=== PATIENT | male | born 1980 | race American Indian/Alaskan Native ===

== ENCOUNTER 2019-01-01 14:29 | Emergency (ER) | payer MEDICARE ==
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
[2019-01-01 15:11] LABS: Basophils % (Auto) 0.6 % (0.0-1.8); Eosinophils # (Auto) 0.3 K/mm3 (0.0-0.4); Eosinophils % (Auto) 4.1 % (0.0-4.3); Hematocrit 41.6 % (35.5-45.6); Hemoglobin 13.9 gm/dl (11.8-15.2); Lymphocytes # (Auto) 1.9 K/mm3 (1.2-5.4); Lymphocytes % (Auto) 29.5 % (13.4-35.0); Mean Corpuscular HGB Conc 33 % (32-34); Mean Corpuscular Volume 81 fl (84-94); Monocytes # (Auto) 0.7 K/mm3 (0.0-0.8); Monocytes % (Auto) 10.5 % (0.0-7.3); Platelet Count 292 K/mm3 (140-440); Red Blood Count 5.13 M/mm3 (3.65-5.03); Red Cell Distribution Width 16.9 % (13.2-15.2)
[2019-01-01] MEDS ORDERED: GEODON IM ONE (15:11)
[2019-01-01 15:37] LABS: Alanine Aminotransferase 9 units/L (7-56); Albumin 4.1 g/dL (3.9-5); BUN/Creatinine Ratio 9; Blood Urea Nitrogen 6 mg/dL (9-20); Calcium 9.1 mg/dL (8.4-10.2); Hemolysis Index 7
[2019-01-01 16:44] LABS: Bacteria,Urine 1+ /HPF (Negative); Bilirubin,Urine NEG (Negative); Blood,Urine NEG (Negative); Color,Urine Yellow (Yellow); Mucus,Urine FEW /HPF; Protein,Urine <15 mg/dL mg/dL (Negative); Urobilinogen,Urine < 2.0 mg/dL (<2.0)
[2019-01-01 16:45] LABS: Amphetamine Screen,Urine PRESUMPTIVE NEGATIVE; Benzodiazepines Screen,Urine PRESUMPTIVE NEGATIVE; Cannabinoid Screen,Urine PRESUMPTIVE NEGATIVE; Cocaine Screen,Urine PRESUMPTIVE NEGATIVE; Methadone Screen,Urine PRESUMPTIVE NEGATIVE; Opiate Screen,Urine PRESUMPTIVE NEGATIVE
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
[2019-01-05 02:46] VITALS: BP 105/64
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
== END 2019-01-05 16:04 | disposition home or self-care (01) ==
LOC: ED 14:29 → EEVIPCON 14:29 → ED 01-05 16:04
DX: F23 Brief psychotic disorder (principal); F91.1 Conduct disorder, childhood-onset type
CPT/HCPCS: 36415; 80053; 80307; 81001; 85025; 99284; G0480; 80320

== ENCOUNTER 2021-02-26 00:59 | Emergency (ER) | payer MEDICARE | END 2021-02-26 01:30 | disposition left against medical advice (07) | LOC: EEVIPCON 00:59 → ED 00:59 | DX: R22.40 Localized swelling, mass and lump, unspecified lower limb (principal); Z53.21 Procedure and treatment not carried out due to patient leaving prior to being seen by health care provider ==

== ENCOUNTER 2022-06-26 11:11 | Emergency (ER) | payer MEDICARE | END 2022-06-26 16:37 | disposition left against medical advice (07) | LOC: ED 11:11 | DX: M79.606 Pain in leg, unspecified (principal); Z13.30 Encounter for screening examination for mental health and behavioral disorders, unspecified; Z53.21 Procedure and treatment not carried out due to patient leaving prior to being seen by health care provider ==

== ENCOUNTER 2022-06-28 10:31 | Emergency (ER) | payer MEDICARE ==
[2022-06-28 10:47] VITALS: BP 171/76
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
--- NOTE | 2022-06-28 11:28 | XRay Report ---
LEFT ANKLE 3 VIEWS INDICATION: ankle pain/injury. COMPARISON: None. IMPRESSION: There is severe diffuse soft tissue swelling/edema. No acute osseous abnormality or suly nt pathology is detected. Signer Name: Yovanny Nicholson Jr, MD Signed: 06/28/2022 11:24 AM Workstation Name: [id number]
[2022-06-28] MEDS ORDERED: KETOROLAC 10 MG TAB PO ONE (13:07)
[2022-06-28] MEDS ORDERED: cephALEXin 500 MG CAP PO ONE (13:07)
[2022-06-28] MEDS ORDERED: SULFAMETHOXAZOLE/TRIMETHOPRIM 800/160MG DS TAB PO ONE (13:07)
[2022-06-28] MEDS ORDERED: ACETAMINOPHEN W/CODEINE 300-30 MG TAB PO ONE (13:07)
[2022-06-28] MEDS ORDERED: predniSONE 20 MG TAB PO ONE (13:11)
--- NOTE | 2022-06-28 14:11 | Emergency Department Report ---
ED Extremity Problem HPI - General Chief complaint: Extremity Injury, Lower Stated complaint: ANKLE/ LEG SWOLLEN Time Seen by Provider: 06/28/22 11:02 Source: patient Mode of arrival: Ambulatory Limitations: Physical Limitation - History of Present Illness Initial comments: 41 yo black male with a pmh of schizophrenia presents to ed for evaluation of le ft ankle pain. Mother states that patient recently got out of [facility] and has had bilateral ankle pain for months but left ankle worse the past few days. He denies in injury or trauma. He denies fever. MD Complaint: extremity swelling -: Gradual, month(s) Location: bilateral lower extremity History of Same: Yes -: No myalgia, No arthralgia, No fever, No associated dyspnea, No associated chest pain Severity scale (0 -10): 6 Quality: aching Associated Symptoms: denies other symptoms - Related Data Previous Rx's Medication Instructions Recorded Last Taken Type Acetaminophen/Codeine [Tylenol 1 tab PO Q6H PRN #12 tab 06/28/22 Unknown Rx /Codeine # 3 tab] Ketorolac [Toradol] 10 mg PO Q6H PRN #12 tab 06/28/22 Unknown Rx Sulfamethoxazole/Trimethoprim 1 each PO BID 7 Days #14 tab 06/28/22 Unknown Rx [Bactrim DS TAB] cephALEXin [Keflex] 500 mg PO Q12HR 7 Days #14 cap 06/28/22 Unknown Rx Allergies Allergy/AdvReac Type Severity Reaction Status Date / Time No Known Allergies Allergy Verified 06/28/22 10:48 ED Review of Systems ROS: Stated complaint: ANKLE/ LEG SWOLLEN Other details as noted in HPI Comment: All other systems reviewed and negative Constitutional: denies: chills, fever Eyes: denies: eye pain, eye discharge, vision change ENT: denies: ear pain, throat pain Respiratory: denies: cough, shortness of breath, wheezing Cardiovascular: denies: chest pain, palpitations Endocrine: no symptoms reported Gastrointestinal: denies: abdominal pain, nausea, diarrhea Genitourinary: denies: urgency, dysuria Musculoskeletal: denies: back pain, joint swelling, arthralgia Skin: denies: rash, lesions Neurological: denies: headache, weakness, paresthesias Psychiatric: denies: anxiety, depression Hematological/Lymphatic: denies: easy bleeding, easy bruising ED Past Medical Hx - Past Medical History Hx Psychiatric Treatment: Yes (multiple IP, GR, [place], [facility], [place], [facility]) Additional medical history: schizophrenia - Social History Smoking Status: Current Every Day Smoker - Medications Home Medications: Home Medications Medication Instructions Recorded Confirmed Last Taken Type Acetaminophen/Codeine [Tylenol 1 tab PO Q6H PRN #12 tab 06/28/22 Unknown Rx /Codeine # 3 tab] Ketorolac [Toradol] 10 mg PO Q6H PRN #12 tab 06/28/22 Unknown Rx Sulfamethoxazole/Trimethoprim 1 each PO BID 7 Days #14 tab 06/28/22 Unknown Rx [Bactrim DS TAB] cephALEXin [Keflex] 500 mg PO Q12HR 7 Days #14 cap 06/28/22 Unknown Rx ED Physical Exam - General Limitations: Physical Limitation General appearance: alert, in no apparent distress - Head Head exam: Present: atraumatic, normocephalic - Eye Eye exam: Present: normal appearance - ENT ENT exam: Present: mucous membranes moist - Neck Neck exam: Present: normal inspection - Respiratory Respiratory exam: Present: normal lung sounds bilaterally. Absent: respiratory distress - Cardiovascular Cardiovascular Exam: Present: regular rate, normal rhythm. Absent: systolic murmur, diastolic murmur, rubs, gallop - GI/Abdominal GI/Abdominal exam: Present: soft, normal bowel sounds - Rectal Rectal exam: Present: deferred - Extremities Exam Extremities exam: Present: normal inspection - Expanded Lower Extremity Exam Left Lower Leg exam: Present: tenderness, swelling, abrasion, erythema. Absent: crepidus, dislocation Ankle exam: Present: tenderness, swelling, abrasion, erythema. Absent: full ROM Foot/Toe exam: Present: tenderness, swelling, abrasion, erythema Neuro vascular tendon exam: Present: no vascular compromise. Absent: pulse deficit, abnormal cap refill, motor deficit, sensory deficit, extremity cold to touch, pallor Gait: Positive: observed and limited by pain - Back Exam Back exam: Present: normal inspection - Neurological Exam Neurological exam: Present: alert, oriented X3 - Psychiatric Psychiatric exam: Present: normal affect, normal mood - Skin Skin exam: Present: warm, dry, intact, normal color. Absent: rash ED Course Vital Signs 06/28/22 06/28/22 10:44 13:14 Temperature 99.0 F Pulse Rate 108 H Respiratory 18 14 Rate Blood Pressure 171/76 [Right] ED Medical Decision Making - Radiology Data Radiology results: report reviewed, image reviewed Xray left ankle: IMPRESSION: There is severe diffuse soft tissue swelling/edema. No acute osseous abnormality or joint pathology is detected. - Medical Decision Making 41 yo black male with a pmh of schizophrenia presents to ed for evaluation of left ankle pain. Mother states that patient recently got out of [facility] and has had bilateral ankle pain for months but left ankle worse the past few days. He denies in injury or trauma. He denies fever. Ankle x-ray without acute abnormalities noted. Physical exam most consistent with bilateral lower extremity cellulitis. Patient be discharged home on 7-day course of Bactrim with Keflex along with Toradol and Tylenol 3 to use as needed for pain. He is advised to follow-up with his primary care provider if no improvement or worsening symptoms and return to the emergency department as need ed. He verbalizes understanding of and agreement with plan of care. Critical care attestation.: If time is entered above; I have spent that time in minutes in the direct care of this critically ill patient, excluding procedure time. ED Disposition Clinical Impression: Bilateral lower leg cellulitis Disposition: HOME / SELF CARE / HOMELESS Is pt being admited?: No Does the pt Need Aspirin: No Condition: Stable Instructions: Cellulitis, Adult, [id number] Additional Instructions: Take medications as prescribed. Follow-up with your primary care provider for further evaluation and management. Return to the emergency department as needed. Prescriptions: Sulfamethoxazole/Trimethoprim [Bactrim DS TAB] 1 each PO BID 7 Days #14 tab cephALEXin [Keflex] 500 mg PO Q12HR 7 Days #14 cap Ketorolac [Toradol] 10 mg PO Q6H PRN #12 tab PRN Reason: Pain Acetaminophen/Codeine [Tylenol /Codeine # 3 tab] 1 tab PO Q6H PRN #12 tab PRN Reason: Pain, Moderate (4-6) Referrals: AMALIA LARA MD [Primary Care Provider] - 3-5 Days Time of Disposition: 14:11
== END 2022-06-28 17:53 | disposition home or self-care (01) ==
LOC: ED 10:31
DX: L03.116 Cellulitis of left lower limb (principal); L03.115 Cellulitis of right lower limb; F20.9 Schizophrenia, unspecified; F17.200 Nicotine dependence, unspecified, uncomplicated; Z79.899 Other long term (current) drug therapy
CPT/HCPCS: 99283